=== PATIENT | male | born 1965 | race Caucasian/White ===

== ENCOUNTER 2019-03-14 14:11 | Emergency (ER) | payer OTHER ==
[~2019-03-14] VITALS: Ht 180.3 cm; Wt 77.1 kg
--- NOTE | 2019-03-14 16:01 | PHYS DOC ---
Past Medical History Past Medical History: Diabetes-Type II Additional Past Medical Histor: BRAIN ANEURSYM Additional Past Surgical Histo: TUMOR REMOVED FROM BRAIN, ABDOMINAL SURGERY AT 1 MONTHS OLD. Alcohol Use: None Drug Use: None Adult General Chief Complaint Chief Complaint: EYE PROBLEMS [facility] HPI Patient is a 54 year old incarcerated male with history of diabetes mellitus and brain aneurysm who presents with complaining of right eye problem. Patient complaining of lower right eye proptosis for the last 4 days as a constant problem without change of vision, nausea and vomiting, headache, nausea and vomiting, injury, focal neuro deficit, history of the same problem. Patient was seen by facility physician and sent to ER for evaluation of possible brain tumor. Review of Systems Review of Systems Constitutional: Denies fever or chills [] Eyes: Denies change in visual acuity, redness, or eye pain [] HENT: Denies nasal congestion or sore throat [] Respiratory: Denies cough or shortness of breath [] Cardiovascular: No additional information not addressed in HPI [] GI: Denies abdominal pain, nausea, vomiting, bloody stools or diarrhea [] : Denies dysuria or hematuria [] Musculoskeletal: Denies back pain or joint pain [] Integument: Denies rash or skin lesions [] Neurologic: Denies headache, focal weakness or sensory changes [] Endocrine: Denies polyuria or polydipsia [] All other systems were reviewed and found to be within normal limits, except as documented in this note. Allergies Allergies Allergies Coded Allergies Type Severity Reaction Last Updated Verified No Known Drug Allergies 03/14/19 No Physical Exam Physical Exam Constitutional: Well developed, well nourished, no distress, non-toxic appearance. [] HENT: Normocephalic, atraumatic. Eyes: Right upper eyelid ptosis, PERRLA, decrease of medial movement of right eye, conjunctiva normal, no discharge. [] Neck: Normal range of motion, no tenderness, supple, no stridor. [] Cardiovascular:Heart rate regular rhythm, no murmur [] Lungs & Thorax: Bilateral breath sounds clear to auscultation [] Neurologic: Alert and oriented X 3, no focal deficits noted. [] Psychologic: Affect normal, judgement normal, mood normal. [] Current Patient Data Vital Signs Vital Signs Date Time Temp Pulse Resp B/P (MAP) Pulse Ox O2 Delivery O2 Flow Rate FiO2 12/5/19 14:18 98.6 76 16 186/99 (128) 98 Room Air 98.6 EKG EKG [] Radiology/Procedures Radiology/Procedures [][facility] [address] [place] [address] IMAGING REPORT Signed PATIENT: BALAJI MALDONADO ACCOUNT: [id number] : 1965 LOCATION: ER AGE: 54 SEX: M EXAM STATUS: REG ER ORD. PHYSICIAN: MONICA REYNOSO MD REASON: ptosis of right eye-H/O BRAIN ANEURYSM AND TUMOR VISION PROBLEM PROCEDURE: CT HEAD WO CONTRAST CT HEAD WO CONTRAST, CT ORBITS WO CONTRAST History: Ptosis of right artery. History of brain aneurysm. Comparison: None. Technique: Noncontrast CT imaging was performed of the head and orbits. Coronal and sagittal reconstructions were performed. Exposure: One or more of the following individualized dose reduction techniques were utilized for this examination: 1. Automated exposure control 2. Adjustment of the mA and/or kV according to patient size 3. Use of iterative reconstruction technique. Findings: No intracranial hemorrhage. No mass effect. No hydrocephalus. Chronic bilateral basal ganglia and right thalamic lacunar infarcts. Postoperative changes right-sided aneurysm clipping and right pterional craniotomy. The right anterior temporal lobe encephalomalacia. Additional foci of decreased attenuation within the hemispheric white matter, may relate to prior insult or sequela of chronic microvascular ischemia. No acute fracture. Minimal maxillary and ethmoid sinus mucosal thickening. Right anterior maxillary mucous retention cyst or polyp. Mastoid air cells are clear. No acute calvarial fracture. Symmetric appearance of the bilateral globes. No proptosis. Symmetric appearance of the bilateral extraocular muscles and optic sheaths. Impression: 1. No acute intracranial or intraorbital abnormality on noncontrast examination. 2. Postoperative changes prior right-sided aneurysm clipping. 3. Chronic bilateral basal ganglia and right thalamic lacunar infarcts. Electronically signed by: Sarah Bishop DO (03/14/2019 4:28 PM) [facility] DICTATED and SIGNED BY: SARAH BISHOP DO DATE: 03/14/191627 Course & Med Decision Making Course & Med Decision Making Pertinent Imaging studies reviewed. (See chart for details) Evaluation of patient in ER showed 54-year-old male patient resident of correctional facilities brought in because of right eye proptosis for 4 days without change of vision. Patient had unremarkable physical exam except for ptosis and limited internal muscle movement right eye. CT head and orbits was unremarkable. Plan to discharge patient to correctional facility with instruction to follow up with patient accounting representative for more evaluation. Dragon Disclaimer Dragon Disclaimer This electronic medical record was generated, in whole or in part, using a voice recognition dictation system. Departure Departure Impression: Primary Impression: Ptosis of eyelid, right Disposition: HOME, SELF-CARE (To police custody at 1652) Condition: STABLE Referrals: NO PCP (PCP) Patient Instructions: Ptosis Surgery Additional Instructions: Follow-up with patient accounting representative in 2 or 3 days Return to emergency room as needed MONICA REYNOSO MD Mar 14, 2019 16:01
--- NOTE | 2019-03-14 16:31 | RAD ---
CT HEAD WO CONTRAST, CT ORBITS WO CONTRAST History: Ptosis of right artery. History of brain aneurysm. Comparison: None. Technique: Noncontrast CT imaging was performed of the head and orbits. Coronal and sagittal reconstructions were performed. Exposure: One or more of the following individualized dose reduction techniques were utilized for this examination: 1. Automated exposure control 2. Adjustment of the mA and/or kV according to patient size 3. Use of iterative reconstruction technique. Findings: No intracranial hemorrhage. No mass effect. No hydrocephalus. Chronic bilateral basal ganglia and right thalamic lacunar infarcts. Postoperative changes right-sided aneurysm clipping and right pterional craniotomy. The right anterior temporal lobe encephalomalacia. Additional foci of decreased attenuation within the hemispheric white matter, may relate to prior insult or sequela of chronic microvascular ischemia. No acute fracture. Minimal maxillary and ethmoid sinus mucosal thickening. Right anterior maxillary mucous retention cyst or polyp. Mastoid air cells are clear. No acute calvarial fracture. Symmetric appearance of the bilateral globes. No proptosis. Symmetric appearance of the bilateral extraocular muscles and optic sheaths. Impression: 1. No acute intracranial or intraorbital abnormality on noncontrast examination. 2. Postoperative changes prior right-sided aneurysm clipping. 3. Chronic bilateral basal ganglia and right thalamic lacunar infarcts. Electronically signed by: Kyle Burton DO (03/14/2019 4:28 PM) [facility]
[2019-03-14 16:42] VITALS: BP 160/88
== END 2019-03-14 17:14 | disposition home or self-care (01) ==
LOC: EEVIPCON 14:11 → ER 14:11
DX: H02.401 Unspecified ptosis of right eyelid (principal); E11.9 Type 2 diabetes mellitus without complications
CPT/HCPCS: 70450; 70480; 99284